=== PATIENT | female | born 1940 | race Caucasian/White ===

== ENCOUNTER → 2020-09-11 12:25 | Outpatient (CLI) | payer OTHER, SELFPAY ==
--- NOTE | ~2020-09-11 | CT_ITS ---
EXAMINATION: CT thoracic spine wo con, CT lumbar spine wo con EXAM DATE: 09/11/2020 12:52 INDICATION: Mid back pain, kyphosis of thoracolumbar region. TECHNIQUE: Spiral CT of the lumbar spine was performed without contrast. Axial, coronal and sagitta l images lumbar spine were reviewed. Axial, coronal and sagittal images of the thoracic spine without contrast were reviewed. The dose-length product (DLP) for this examination was 697.17 (accession [id number]), 930.78 (accession [id number]) mGy-cm. The exposure was tailored according to elisa ent size (auto mA exposure control), and iterative reconstruction (ASIR) was used as additional dose reduction technique. Correlation is made to CT lumbar spine 11/16/2016. FINDINGS: There are intact thoracolumbar Tatum rods from T11 through the sacrum and iliac bones. Posterior bone graft material lower lumbar laminectomy defects. Mild thoracolumbar levoscoliosis. THORACIC SPINE: Chronic T11 anterior wedging, compression fracture, with moderate to severe loss of i ts height anteriorly causing kyphosis. Pedicular screws in this level are intact. Posterior vertebral body height is maintained, but there is 3 mm anterolisthesis of T10 on T11, with severe facet arthro annetta and mild central canal stenosis. Moderate to severe disc disease T9-T10 and T10-11. Mild chroni c central compression superior endplate of T4. Otherwise relatively mild thoracic spondylosis. There are no acute fractures identified. Paraspinal soft tissue is unremarkable. LUMBAR SPINE: There are limitations from the lumbar fusion hardware. No loosening surrounding the ped icular screws. There is mild thoracolumbar levoscoliosis. Lumbar vertebral body heights are maintaine d. There is interbody device at L5-S1 and L4-5. There is probably grade 1 anterolisthesis L5 on S1. S acroiliac joints are intact. There are no acute fractures identified. Incidental sigmoid diverticulos is. Anterior abdominal wall mesh. Cholecystectomy clips. Level by level evaluation: T11-12: Disc does not extend beyond the endplate margin. Facet arthropathy: Moderate. Neural foraminal stenosis: Mild right. Central canal stenosis: No stenosis. T12-L1: Disc does not extend beyond the endplate margin. Facet arthropathy: Fused. Neural foraminal stenosis: No stenosis. Central canal stenosis: No stenosis. L1-L2: There is a mild diffuse disc bulge. Facet arthropathy: Moderate but fused. Neural foraminal stenosis: Mild right. Central canal stenosis: No stenosis. L2-L3: There is a mild diffuse disc bulge. Facet arthropathy: Moderate but fused. Neural foraminal stenosis: Mild to moderate right, mild left. Central canal stenosis: Mild. L3-L4: There is a mild diffuse disc bulge. Facet arthropathy: Moderate but fused. Neural foraminal stenosis: Mild to moderate right, mild left. Central canal stenosis: Mild. L4-L5: This level is fused. Facet arthropathy: Moderate but fused. Neural foraminal stenosis: Mild right. Central canal stenosis: No stenosis. L5-S1: This level is fused. Facet arthropathy: Poorly visualized. Neural foraminal stenosis: Mild to moderate left, mild right. Central canal stenosis: No stenosis. Compared to previous examination, the Tatum rods, fusion is new. There is mild improvement in pa tients levoscoliosis. IMPRESSION: 1. Intact Tatum rods T11 through the pelvis. 2. Chronic appearing moderate to severe anterior wedging of T11, causing kyphosis. 3. Mild lumbar levoscoliosis. 4. Spondylosis as detailed above. Reviewed, dictated and finalized at location A.
== END ==
PROVIDERS: PCP Family Medicine Adolescent Medicine; Visit Provider Nurse Practitioner Acute Care
DX: M40.205 Unspecified kyphosis, thoracolumbar region (principal); M47.815 Spondylosis without myelopathy or radiculopathy, thoracolumbar region; M48.05 Spinal stenosis, thoracolumbar region; M47.817 Spondylosis without myelopathy or radiculopathy, lumbosacral region; M48.07 Spinal stenosis, lumbosacral region
CPT/HCPCS: 72128; 72131

== ENCOUNTER → 2022-10-20 12:58 | Outpatient (CLI) | payer OTHER, SELFPAY ==
--- NOTE | ~2022-10-20 | CT_ITS ---
Noncontrast CT scan of the thoracolumbar spine CLINICAL HISTORY: Pain TECHNIQUE: Axial noncontrast imaging of the thoracolumbar spine was performed. Sagittal and coronal r eformatted images were constructed. Dose reduction technique was used on this scan by utilizing autom ated exposure control and iterative reconstruction technique. The dose-length product (DLP) was 539.1 3 mGy-cm. COMPARISON: 09/11/2020 FINDINGS: There is stable posterior fixation hardware extending from T11 through the sacrum/pelvis, b ilateral rods and transpedicular screws. There are interbody disc fusion devices at the L4-L5 and L5- S1 disc spaces. There is stable severe compression deformity of T11 with acute kyphosis related to th is deformity. There is stable severe degenerative disc narrowing/change at T9-T10 and T10-T11. Remaining thoracic s pine intervertebral disc spaces are well preserved. No definite canal stenosis or cord compression th oracic spine, despite mild retropulsion of the T11 vertebral body. There is extensive streak artifact in the thoracic spine for hardware. No definite canal stenosis halle dent. Mild degenerative spondylitic changes appears similar to prior exam. There is probable mild saba ateral neural foraminal narrowing at L3-L4. There is probable mild right neural foraminal narrowing a t L4-L5. There is probable moderate to possibly severe bilateral neural foraminal narrowing at L5-S1. There is extensive fusion of the lumbar facet joints. Impression: Overall, there is probable minimal if any significant change as compared to prior exam of the thoraco lumbar spine. Stable T11 compression fracture with associated kyphosis. Stable posterior fusion hardware extending from T11 through the sacrum/pelvis. Mild degenerative spondylosis overall, as detailed above, similar to prior exam. Reviewed, dictated and finalized at [facility]. Impression: Overall, there is probable minimal if any significant change as compared to saloni or exam of the thoracolumbar spine. Stable T11 compression fracture with associated kyphosis. Stable posterior fusion hardware extending from T11 through the sacrum/pelvis. Mild degenerative spondylosis overall, as detailed above, similar to prior exam .
== END ==
PROVIDERS: PCP Family Medicine Adolescent Medicine; Visit Provider Nurse Practitioner Family
DX: M54.59 Other low back pain (principal); M54.6 Pain in thoracic spine; M48.54XA Collapsed vertebra, not elsewhere classified, thoracic region, initial encounter for fracture; M40.204 Unspecified kyphosis, thoracic region; M47.814 Spondylosis without myelopathy or radiculopathy, thoracic region
CPT/HCPCS: 72128; 72131

== ENCOUNTER 2023-07-25 13:53 | Observation (INO) | payer OTHER, SELFPAY ==
[2023-07-25] VITALS (9 sets, daily range): BP systolic 116–154; BP diastolic 57–75; PULSE 82–91; RESP 16–20; TEMP 36.5–36.7; O2SAT 96–100; BMI 26.9
--- NOTE | ~2023-07-25 | MR_ITS ---
EXAMINATION: MR brain/brain stem wo/w con DATE: 07/26/2023 11:21 INDICATION: Syncope. TECHNIQUE: Magnetic resonance imaging (MRI) of the brain and brainstem was performed without and with 14 mL MultiHance intravenous contrast. COMPARISON: Head CT 07/25/2023 FINDINGS: There is an empty sella. There are scattered areas of nonspecific increased T2-weighted sig nal intensity in the cerebral white matter, which is within normal limits for the patient's age. Ther e is no intracranial hemorrhage, acute infarction, or abnormal intracranial mass lesion. The ventricl es are normal in size. There are likely changes of ocular lens replacement surgeries. There is mild m ucosal thickening in the paranasal sinuses. The mastoid air cells are normal. IMPRESSION: 1. Empty sella. Reviewed, dictated and finalized at location A. IMPRESSION: 1. Empty sella.
--- NOTE | ~2023-07-25 | CT_ITS ---
EXAMINATION: CT brain wo con DATE: 07/25/2023 15:12 INDICATION: Altered mental status. Seizure. TECHNIQUE: Computed tomography (CT) of the head was performed without intravenous contrast. The mA wa s adjusted according to patient size. Iterative reconstruction technique was employed. The dose-lengt h product was 605.33 mGy-cm. COMPARISON: Head CT 05/30/2016 FINDINGS: There are scattered areas of low attenuation in the cerebral white matter, which is within normal limits for the patient's age. There is no intracranial hemorrhage, acute infarction, or abnorm al intracranial mass lesion. The ventricles are normal in size. There are likely changes of ocular le ns replacement surgeries. There is mild mucosal thickening in the paranasal sinuses. The mastoid air cells are normal. IMPRESSION: 1. Normal aging brain. Reviewed, dictated and finalized at location E. IMPRESSION: 1. Normal aging brain.
--- NOTE | ~2023-07-25 | XR_ITS ---
EXAMINATION: XR chest 2V DATE: 07/25/2023 17:21 INDICATION: Unresponsive episode TECHNIQUE: frontal and lateral views of the chest were obtained. COMPARISON: None FINDINGS: Mild opacities at the left lung base. No pulmonary edema, pleural effusion or pneumothorax. The cardi omediastinal silhouette is normal. Focal kyphosis associated with a chronic T11 compression fracture. There is posterior spinal fusion with bilateral vertical tj and pedicle screw fixation beginning at T11 and extending into the lumbar spine and beyond the inferior margin of the [id number]. IMPRESSION: 1. Mild opacities at the left lung base which could represent atelectasis or pneumonia. Reviewed, dictated and finalized at location A. IMPRESSION: 1. Mild opacities at the left lung base which could represent atelectasis or pn eumonia.
--- NOTE | ~2023-07-25 | US_ITS ---
Procedure: Duplex Doppler examination of the bilateral carotids. Indication: Syncope Technique: Real time, color-flow and pulse wave Doppler examination of the bilateral carotids was performed. Findings: Brito scale ultrasonography of the right neck demonstrated no significant plaque. There was demonstrat ion of normal color-flow and Doppler waveforms within the right common, internal and external carotid arteries. The peak systolic velocities in the right common, internal and external carotid arteries w ere demonstrated to be 92 cm/sec, 77 cm/sec and 57 cm/sec respectively. The right ICA/CCA ratio was 0 .8.The proximal right internal carotid artery demonstrates 0% stenosis relative to the normal distal artery lumen diameter. Brito scale sonography of the left neck demonstrated no significant plaque. There was demonstration of normal color-flow and wave forms within the left common, internal and external carotid arteries. The peak systolic velocities in the left common, internal and external carotid arteries were demonstrate d to be 94cm/sec, 105 cm/sec and 61 cm/sec respectively. The left ICA/CCA ratio was 1.1. The proximal left internal carotid artery demonstrates 0% stenosis relative to the normal distal artery lumen juany meter. There was antegrade flow demonstrated in the bilateral vertebral arteries. Impression: No hemodynamically significant stenosis of the bilateral internal carotid arteries. Antegrade flow in the bilateral vertebral arteries. Note: The methodology used is an indirect measurement validated against a direct method (such as the NASCET criteria) that compares diameters at the stenosis to the distal ICA. Reviewed, dictated and finalized at location . Impression: No hemodynamically significant stenosis of the bilateral internal carotid arter ies. Antegrade flow in the bilateral vertebral arteries. Note: The methodology used is an indirect measurement validated against a direct meth od (such as the NASCET criteria) that compares diameters at the stenosis to the distal ICA.
--- NOTE | 2023-07-25 13:58 | ECG_ITS ---
Measurements Intervals [place] Rate: 88 P: 42 NM: 162 QRS: -49 QRSD: 141 T: 3 QT: 399 QTc: 483 Interpretive Statements SINUS RHYTHM LEFT AXIS DEVIATION RIGHT BUNDLE BRANCH BLOCK CONSIDER INFERIOR INFARCT, AGE INDETERMINATE ABNORMAL ECG NO PREVIOUS ECG AVAILABLE FOR COMPARISON Electronically Signed On 07-25-2023 19:52:04 CDT by Reji Mathias D.O.
[2023-07-25 14:18] LABS: Appearance Urine Clear (Clear); Bilirubin Urine Negative (Negative); Blood Urine Negative (Negative); Color Urine Yellow (Yellow); Glucose Urine UA Negative (Negative); Ketones Urine Trace mg/dL (Negative); Leukocyte Esterase Ur Negative LEU/UL (Negative); Nitrate Urine Negative (Negative); Protein Urine Negative (Negative); Specific Grav Ur 1.021 (1.001-1.035)
--- NOTE | 2023-07-25 14:18 | ED.SYNCOPE ---
HPI - Syncope General Chief Complaint: Seizure Stated Complaint: ?AMS?seizure Time Seen by Provider: 07/25/23 14:07 Source: patient and family Mode of arrival: EMS Limitations: other (patient does not remember incident) History of Present Illness HPI narrative: This is a 83 year old female that presents to the ER after a syncopal episode today. Reports she remembers eating at the table at her daughters house, then next thing she knows she is in the ambulance. Family reports she started to feel nauseous and vomited, she has been having trouble with dizziness recently. She stared off and then slumped in her chair. She was incontinent of urine. She does report history of syncopal episodes in the past. Denies any symptoms currently. Denies vision changes, chest pain, shortness of breath, palpitations, focal numbness or weakness. Related Data Home Medications Medication Instructions Recorded Confirmed naproxen sodium 220 mg tablet 220 mg PO BID PRN 11/20/20 01/14/23 (Aleve) Allergies Allergy/AdvReac Type Severity Reaction Status Date / Time celecoxib Allergy Severe GI BLEED Verified 07/15/23 07:50 donepezil AdvReac Intermediate diarrhea Verified 07/15/23 07:50 lisinopril AdvReac Intermediate cough Verified 07/15/23 07:50 Draper Nut Allergy Unknown mouth Uncoded 07/15/23 07:50 swells memantine AdvReac Intermediate Dizziness Uncoded 07/15/23 07:50 Review of Systems Review of Systems: CONSTITUTIONAL: Denies fever EYES: Denies visual changes CARDIOVASCULAR: Denies chest pain, palpitations RESPIRATORY: Denies dyspnea. GASTROINTESTINAL: Denies vomiting NEUROLOGIC: Denies numbness, or weakness. All systems reviewed & are unremarkable except as noted in HPI and below [facility] Past Medical History Medical History (Updated 07/25/23 @ 17:13 by Mattie Duarte PA-C) Gastro-esophageal reflux disease without esophagitis Hypertensive chronic kidney disease with stage 1 through stage 4 chronic kidney disease, or unspecified chronic kidney disease Hypothyroidism, unspecified (12/2021) Mixed hyperlipidemia Surgical History Surgical History History of ankle surgery 2018 right History of arthroscopy of left knee History of cholecystectomy 2010 History of hammer toe correction History of hemorrhoidectomy History of hysterectomy with bilateral oophorectomy History of lumbar surgery 2018 History of ventral hernia repair Family History Family History Father Leukemia Mother Hypertension Brain aneurysm Daughter Breast cancer Other Family history of arthritis Social History Social History Smoking status: Never smoker Second hand tobacco smoke exposure: No Alcohol intake: never Substance use: never Substance use type: does not use Lack of Transportation: No Lack of Food: Never True Current Housing: I Have Housing Concerned About Future Housing: No Difficulty Paying Gas/Electric Bills: No Difficulty Paying for Meds: No Currently Unemployed: No Education: High School Diploma/GED Difficulty w/ Childcare or Family Care: No Living arrangements: with family Occupation/Education: retired Gender identity (if verbalized by the patient): Female Sexual Orientation (if Verbalized by the Patient): Straight or Heterosexual Spiritual care concerns: No Agree to blood products: Yes Exam Narrative: GENERAL: Elderly, well-nourished, and in no acute distress. HEAD: Normocephalic, atraumatic. EYES: PERRLA and EOMI. ENT: Nares clear, no rhinorrhea or epistaxis. Mucous membranes moist. Oropharynx without tonsillar hypertrophy exudate or other lesions. Bilateral cerumen impaction NECK: Supple. No adenopathy or masses. No midline spinal tenderness CHEST: Clear to auscultation. No respiratory distress. No wheezes rales
[2023-07-25 14:23] LABS: Basophils Absolute Auto 0.1 K/mm3 (0.0-0.1); Eosinophils Absolute Auto 0.3 K/mm3 (0-0.3); Eosinophils Percent Auto 4.4 % (0-4.4); Hematocrit 33.1 % (37.0-47.0); Hemoglobin 10.1 g/dL (12.0-15.0); Immature Granulocyte Absolute 0.03 K/mm3 (0.00-0.031); Immature Granulocyte Percent A 0.4 % (0-0.5); Lymphocytes Percent Auto 25.4 % (18.3-44.2); Mean Corpuscular HGB Conc 30.5 g/dl (32-36); Mean Corpuscular Hemoglobin 28.2 pg (26-34); Mean Corpuscular Volume 92.5 fl (80-100); Mean Platelet Volume 11.3 fl (7.4-10.4); Monocytes Absolute Auto 0.7 K/mm3 (0.1-0.6); Neutrophils Absolute Auto 4.2 K/mm3 (1.3-6.7); Neutrophils Percent Auto 58.8 % (45.5-73.1); Platelet Count Result 295 k/mm3 (150-375); Red Blood Count 3.58 M/mm3 (4.2-5.4); Red Cell Distribution Width 12.6 % (11.5-14.5); White Blood Count 7.1 K/mm3 (4.5-10.0)
[2023-07-25 14:28] LABS: Prothrombin Time 13.9 Seconds (11.1-14.7)
[2023-07-25 14:29] LABS: Partial Thromboplastin Time 28.5 Seconds (22.3-36.8)
[2023-07-25 14:33] LABS: Alanine Aminotransferase 31 U/L (6-35); Albumin Level 3.4 g/dL (3.5-5.1); Alkaline Phosphatase 74 U/L (38-126); Anion Gap 8 mmol/L (4-12); Aspartate Amino Transferase 56 U/L (14-36); Bilirubin,Total 0.4 mg/dL (0.2-1.3); Blood Urea Nitrogen 24 mg/dL (7-17); Calcium 8.5 mg/dL (8.4-10.2); Carbon Dioxide 23 mmol/L (22-30); Chloride 106 mmol/L (98-107); Estimated CRCL calculation 33 ml/min; Estimated Glomerular Filt Rate 53; Glucose 181 mg/dL (65-110); Potassium 2.9 mmol/L (3.4-5.0); Sodium 137 mmol/L (137-145)
[2023-07-25 14:35] LABS: Add Urine Microscopic? NO
[2023-07-25 14:51] LABS: Troponin I < 0.012 ng/mL (0.000-0.034)
[2023-07-25] MEDS: POTASSIUM CHLORIDE 20 MEQ ER TABLET 40 MEQ PO (15:53)
[2023-07-25] MEDS: MAGNESIUM SULF 2 GM/WATER 50ML 2 GM/50 ML BAG IVPB (15:54)
--- NOTE | 2023-07-25 18:25 | ADMGEN ---
This patient, Leslie Flores, was admitted to Medical Room 346-01. Patient/family oriented to hospital policies and general routines including ID bracelet, bed and alarms, visiting hours, pain management, procedures, bathroom and other care routines, personal items, smoking policy, room service/diet, and visiting hours. Information on how to activate the Rapid Response Team has been discussed. Patient/Family are encouraged to report perceived risks to care and to ask questions if they do not understand what they are told or what they should do.
--- NOTE | 2023-07-25 18:40 | PM.IMHP ---
H&P: HPI History of Present Illness Date/Time: 07/25/23 18:05 Chief Complaint: Unresponsive episode. Narrative: This is a pleasant 83-year-old female with hypertension, hyperlipidemia, hypothyroidism, chronic kidney disease, mild memory impairment, and gastroesophageal reflux disease who presented to the emergency department via EMS from home for evaluation after an unresponsive episode. The patient provides the following history and her family members provide additional information, with the patient's permission. She was in her usual state of health when she got up this morning, went to christian, and then went to her daughter's house to for [employer] lunch. She ate a good meal and just before dessert was to be served she began to complain of dizziness and nausea. She then became unresponsive and slumped forward into the chair. Family members report that her eyes were open the entire time but she was not answering questions or following commands. Her jaw appeared to be clenched and she was breathing heavily. There were no reports of tremors. She was incontinent of a small amount of urine. After a couple of minutes she came to and had several episodes of emesis. She does not recall feelings of chest pain, pleuritic pain, palpitations, sensations of racing heart, or shortness of breath. In the ED: She was afebrile on arrival with stable blood pressures. Labs were significant for a WBC count of 7.1, hemoglobin 10.1, potassium 2.9, BUN 24, glucose 181, magnesium 1.0, troponin less than 0.012. Urine was positive for trace ketones. Head CT showed normal aging brain. EKG showed sinus rhythm with left axis deviation, right bundle-branch block, and possible age-indeterminate inferior infarct. She is being admitted in this setting for further workup. Review of Systems Review of Systems: Twelve systems were reviewed and are negative except for as per HPI. [facility] Past Medical History Medical History (Updated 07/25/23 @ 21:55 by Barbara Naqvi PA-C) Gastro-esophageal reflux disease without esophagitis Hypertensive chronic kidney disease with stage 1 through stage 4 chronic kidney disease, or unspecified chronic kidney disease Hypothyroidism, unspecified (12/2021) Mixed hyperlipidemia Surgical History Surgical History History of ankle surgery 2018 right History of arthroscopy of left knee History of cholecystectomy 2010 History of hammer toe correction History of hemorrhoidectomy History of hysterectomy with bilateral oophorectomy History of lumbar surgery 2018 History of ventral hernia repair Family History Family History Father Leukemia Mother Hypertension Brain aneurysm Daughter Breast cancer Other Family history of arthritis Social History Social History (Updated 07/25/23 @ 21:53 by Barbara Naqvi PA-C) Social History: Surrogate medical decision maker: Gene Reyeseliezer, spouse. Code status: Full code. Smoking status: Never smoker Second hand tobacco smoke exposure: No Alcohol intake: never Substance use: never Substance use type: does not use Do You Feel Safe in your Home?: Yes Lack of Transportation: No Lack of Food: Never True Current Housing: I Have Housing Concerned About Future Housing: No Difficulty Paying Gas/Electric Bills: No Difficulty Paying for Meds: No Currently Unemployed: No Education: High School Diploma/GED Difficulty w/ Childcare or Family Care: No Living arrangements: with family Occupation/Education: retired Spiritual care concerns: No Agree to blood products: Yes Meds Home Medications and Allergies Home Medications Medication Instructions Recorded Confirmed Type naproxen sodium 220 mg tablet 220 mg PO BID PRN Pain 11/20/20 07/25/23 History (Aleve) omeprazole 40 mg capsule,delayed 40 mg PO DAILY #90 caps 11/23/22 07/25/23 Rx r
[2023-07-25 22:56] LABS: Magnesium 1.6 mg/dL (1.6-2.3); Potassium 3.6 mmol/L (3.4-5.0)
[2023-07-25 23:17] LABS: Hemoglobin A1C 5.5 % (<5.7)
[2023-07-26] VITALS (12 sets, daily range): BP systolic 141–167; BP diastolic 78–98; PULSE 73–101; RESP 16–18; TEMP 36.5–36.8; O2SAT 97–99
--- NOTE | 2023-07-26 | ECHO_ITS ---
Patient Info Name: Leslie lFores Age: 83 years : 1940 Gender: Female Ht: 64 in Wt: 156 lbs BSA: 1.80 m2 HR: 86 bpm BP: 141 / 81 mmHg Technical Quality: Fair Exam Date: 07/26/2023 3:28 PM Exam Location: Echo Lab Exam Room: [facility] Patient Status: Inpatient Admit Date: 07/25/2023 Staff Ordering Physician: Barbara Naqvi PA-C Blender Laborer: Brandy Avila RDCS Attending Provider: Yoel Kelly MD Referring Physician: Donya AWAN; Exam Type: CA echo doppler color flow Study Info Indications - syncope Complete two-dimensional, color flow and Doppler transthoracic echocardiogram is performed. Summary 1. Complete two-dimensional, color flow and Doppler transthoracic echocardiogram is performed. 2. Left ventricular chamber dimension is normal. 3. Left ventricular systolic function is normal, estimated at 65-70%. 4. The left ventricular diastolic function is grade I diastolic dysfunction. 5. E/e' 14 is mildly elevated. 6. Left atrial chamber dimension is moderately enlarged. 7. Lambdl excrescences seen on aortic vavle leaflets. 8. There is moderate aortic valve sclerosis. 9. The mitral valve has moderately calcified annulus. 10. There is mild mitral valve regurgitation. 11. No pulmonary hypertension, estimated pulmonary arterial systolic pressure is 35 mmHg. Left Ventricle E/e' 14 is mildly elevated. Left ventricular chamber dimension is normal. Left ventricular systolic function is normal, estimated at 65-70%. The left ventricular diastolic function is grade I diastolic dysfunction. Right Ventricle Right ventricular chamber dimension is normal. Right ventricular systolic function is normal. Left Atria Left atrial chamber dimension is moderately enlarged. Right Atria Right atrial chamber dimension is normal. Aortic Valve Lambdl excrescences seen on aortic vavle leaflets. The aortic valve is trileaflet. There is moderate aortic valve sclerosis. There is no aortic valve stenosis. There is no aortic valve regurgitation. Pulmonic Valve There is no pulmonic regurgitation. Mitral Valve The mitral valve has moderately calcified annulus. There is no mitral valve stenosis. There is mild mitral valve regurgitation. Tricuspid Valve There is no tricuspid valve regurgitation. No pulmonary hypertension, estimated pulmonary arterial systolic pressure is 35 mmHg. Pericardium/Pleural There is no pericardial effusion. Inferior Vena Cava Normal inferior vena cava with >50% collapse upon inspiration consistent with normal right atrial pressure, 5 mmHg. Aorta The aortic root size at the sinus of Valsalva is normal. Left Ventricular Outflow Tract Name Value Normal LVOT 2D LVOT Diameter 2.0 cm LVOT Doppler LVOT Peak Gradient 6 mmHg LVOT Mean Gradient 4 mmHg LVOT VTI 26 cm LVOT VTI/AV VTI Ratio 0.8 LVOT Stroke Volume 80 ml LVOT CO 18.3 l/min LVOT CI 10.2 l/min/m2 Pulmonic Valve Name
[2023-07-26 06:19] LABS: Hematocrit 29.6 % (37.0-47.0); Hemoglobin 9.1 g/dL (12.0-15.0); Mean Corpuscular HGB Conc 30.7 g/dl (32-36); Mean Corpuscular Hemoglobin 27.9 pg (26-34); Mean Corpuscular Volume 90.8 fl (80-100); Mean Platelet Volume 11.5 fl (7.4-10.4); Platelet Count Result 263 k/mm3 (150-375); Red Blood Count 3.26 M/mm3 (4.2-5.4); Red Cell Distribution Width 12.6 % (11.5-14.5); White Blood Count 6.2 K/mm3 (4.5-10.0)
[2023-07-26 06:25] LABS: Alanine Aminotransferase 30 U/L (6-35); Albumin Level 2.9 g/dL (3.5-5.1); Alkaline Phosphatase 72 U/L (38-126); Anion Gap 3 mmol/L (4-12); Aspartate Amino Transferase 54 U/L (14-36); Bilirubin,Total 0.3 mg/dL (0.2-1.3); Blood Urea Nitrogen 20 mg/dL (7-17); Calcium 8.3 mg/dL (8.4-10.2); Carbon Dioxide 23 mmol/L (22-30); Chloride 110 mmol/L (98-107); Estimated CRCL calculation 40 ml/min; Estimated Glomerular Filt Rate > 60; Glucose 93 mg/dL (65-110); Magnesium 1.6 mg/dL (1.6-2.3); Potassium 3.5 mmol/L (3.4-5.0); Sodium 136 mmol/L (137-145)
[2023-07-26] MEDS: LOSARTAN POTASSIUM 50 MG TABLET PO (09:07)
[2023-07-26] MEDS: ATORVASTATIN 20 MG TABLET PO (09:08)
[2023-07-26] MEDS: FUROSEMIDE 40 MG TABLET PO (09:08)
[2023-07-26] MEDS: ENOXAPARIN 40 MG/0.4 ML SYRINGE SUB-Q (09:08)
--- NOTE | 2023-07-26 10:41 | WPDNEUROLOGY ---
Neurology EEG Report General Information Date of Study: 07/26/23 TEST Electroencephalogram DIAGNOSIS loss of consciousness CONDITION OF RECORDING bedside CLINICAL HISTORY history of loss of consciousness preceded by dizziness and nausea. EEG DESCRIPTION During wakefulness the background activity consists of posterior dominant alpha rhythm at 9 hertz with an amplitude of 20-40 microvolts which appears more deformed and reactive to eye opening. Anteriorly low amplitude mixed frequency activity was seen. There is a moderate anteroposterior gradient. During drowsiness attenuation of background activity and diffuse theta activity were seen however patient did not progress to stage 2 sleep. Hyperventilation or Photic stimulation were not performed. IMPRESSION This is a normal EEG obtained during awake and drowsy states.
--- NOTE | 2023-07-26 11:33 | WPDNEURCNPN ---
Assessment and Plan Assessment and plan (1) Syncope: Code(s): R55 - Syncope and collapse Status: Acute Assessment and Plan: This is 3rd spell of unresponsiveness occurred to patient's . The concern is the clenching of the jaw and today staring blankly and incontinence for urine making seizures as a possibility. Her EEG was however normal. CT scan of brain was also normal. It does show a fair amount or atrophy. The patient has undergone MRI of the results of which will be followed up. I have reviewed the films and these appeared to within acceptable normal range. Mild white matter changes were noted. No acute infarcts were identified on the diffusion scanning. (2) Altered awareness, transient: Code(s): R40.4 - Transient alteration of awareness Status: Acute Assessment and Plan: please refer to the note above (3) Memory impairment: Code(s): R41.3 - Other amnesia Status: Acute Assessment and Plan: the patient is on done is on Aricept 5 mg a day and seems to do well according to the family. (4) Hypertension: Code(s): I10 - Essential (primary) hypertension Status: Acute Assessment and Plan: Controlled (5) Chronic anemia: Code(s): D64.9 - Anemia, unspecified Status: Acute (6) Chronic kidney disease: Code(s): N18.9 - Chronic kidney disease, unspecified Status: Acute Plan since the patient had 2 spells prior to this the possibility of a cardiac arrhythmia versus seizure disorder with indeed be a consideration. Vasovagal attacks can also sometimes be there as a possibility. I would suggest a prolonged cardiac monitoring for 30 days and if this does not show any abnormality I should be glad to see her in my office pre impaired ache therapy with anticonvulsants may be consider in some cases in view of the history of clenching of the jaw incontinence of urine. Of course none of these things prove that she is definitely having seizures. EEG was normal and that also does not prove or rule out seizure disorder. I have explained this to the patient and her family. Impairing have been may be offered in some cases after repeated spell where a cardiac cause is not found. I would also suggest a carotid Doppler study. She is known to have stage 1 chronic kidney disease and has an angiographic study is deferred. Consult date: 07/26/23 Time Seen: 11:33 Reason for consult: Episode of unresponsiveness HPI: Leslie Flores is a 83 year old female with history of episode of unresponsiveness witnessed by her who was present at the time of the evaluation. Patient did not have any warning. She suddenly he started to be staring blankly and they appeared out of it for a few minutes. she appeared to be clenching her jaw and she also has incontinence of urine. She has had 2 other spells such similar to this in the past. The very last 1 of these occurred 2 years ago. does not remember if there was any outcome from the testing done at the time. The patient has history of chronic pain and has been [facility] and was she was offered possible morphine pump however this did not materialize due to some technical regions. She also history of vertigo for last month and half and has seen a family physician regarding this. She was diagnosed to have benign paroxysmal positional vertigo. Patient denies any other pertinent symptoms. She does take Aleve for pain. I noted that she has history of stage 1 chronic kidney disease and alerted her of the potential side effect from naproxen in patients kidney disease. Review of Systems Review of Systems: All systems reviewed & are unremarkable except as noted in HPI and below Constitutional: Constitutional: Reports no additional constitutional complaints Cardiovascular: Cardiovascular: Reports no additional cardiovascular complaints Respiratory: Respiratory: Reports no
[2023-07-26 12:29] LABS: T4 Thyroxine 9.17 ug/dL (5.53-11.0)
[2023-07-26 12:52] LABS: Vitamin D 25 Hydroxy 22.3 ng/mL
[2023-07-26 13:18] LABS: Folic Acid 4.2 ng/mL (2.76->20)
--- NOTE | 2023-07-26 16:26 | PM.IMPN ---
Progress Note: A&P Assessment and Plan (1) Syncope: Code(s): R55 - Syncope and collapse Status: Acute Assessment and Plan: ECHO Carotid dopplers Venous dopplers ordered MRI ordered CXR ordered (2) Hypokalemia: Code(s): E87.6 - Hypokalemia Status: Resolved (3) Hypomagnesemia: Code(s): E83.42 - Hypomagnesemia Status: Resolved (4) Hyperglycemia: Code(s): R73.9 - Hyperglycemia, unspecified Status: Acute Assessment and Plan: A1c 5.5 continue to monitor (5) Memory impairment: Code(s): R41.3 - Other amnesia Status: Acute Assessment and Plan: Neurology consulted EEG normal MRI ordered - showed empty sella, awaiting further evaluation PT/OT ordered (6) Chronic kidney disease: Code(s): N18.9 - Chronic kidney disease, unspecified Status: Chronic Assessment and Plan: UA negative Labs WNL, continue to trend and monitor (7) Chronic anemia: Code(s): D64.9 - Anemia, unspecified Status: Chronic Assessment and Plan: 9.1/29.6 today continue to monitor will order iron studies (8) Hypertension: Code(s): I10 - Essential (primary) hypertension Status: Chronic Assessment and Plan: continue home meds Subjective Date/time seen: 07/26/23 16:26 Interval history: Patient sitting up in bed on exam, in no acute distress. Family is at bedside. She denies any SOB, chest pain. Neurology consulted and full work up ordered, with pending results. PT/OT ordered for d/c planning. Review of Systems Review of Systems: All systems reviewed & are unremarkable except as noted in HPI and below Exam Narrative: General: Well-developed, nontoxic-appearing elderly female sitting up in bed in no distress. HEENT: Normocephalic, atraumatic. PERRLA, EOMI. Neck: Supple. Respiratory: Lungs are clear to auscultation bilaterally. Cardiovascular: RRR with S1-S2. Gastrointestinal: Abdomen is soft and nontender with positive bowel sounds. Skin: Warm and dry. Extremities: No cyanosis, clubbing, or edema. Radial and pedal pulses intact. Neurological: A&Ox3. Cranial nerves 2-12 are grossly intact. No gross focal deficits to casual conversation. Psychiatric: Pleasant and cooperative with appropriate mood and affect. Objective Data Vital Signs Vital Signs: Vital Signs - 24 hr 07/25/23 16:46 07/25/23 17:16 07/25/23 20:45 Temperature 97.9 F 97.7 F Pulse Rate 85 90 86 Respiratory Rate 19 18 18 Blood Pressure 130/65 116/57 L 154/75 H Pulse Oximetry 100 99 98 Oxygen Delivery 07/25/23 20:00 07/26/23 00:00 07/26/23 04:00 Temperature Pulse Rate 82 73 73 Respiratory Rate Blood Pressure Pulse Oximetry Oxygen Delivery 07/26/23 04:59 07/26/23 08:00 07/26/23 08:00 Temperature 98.1 F Pulse Rate 86 86 Respiratory Rate 16 Blood Pressure 141/81 H Pulse Oximetry 97 97 Oxygen Delivery Room Air 07/26/23 10:48 07/26/23 12:00 07/26/23 14:00 Temperature 98.3 F Pulse Rate 88 98 Respiratory Rate 16 Blood Pressure 167/91 H Pulse Oximetry 99 Oxygen Delivery Room Air 07/26/23 14:00 07/26/23 14:00 07/26/23 15:28 Temperature 98.3 F Pulse Rate 98 Respiratory Rate 16 Blood Pressure 167/91 H 148/98 H 148/98 H Pulse Oximetry 99 Oxygen Delivery Intake/Output Intake/Output: Intake & Output 07/23/23 07/24/23 07/25/23 07/26/23 23:59 23:59 23:59 23:59 Intake Total 50 702 Output Total 20 Balance 30 702 Meds/Results Medications: Active Medications Generic Name Dose Route Start Last Admin Trade Name Leandroq PRN Reason Stop Dose Admin Acetaminophen 650 mg 07/25/23 21:59 Acetaminophen 325 Mg Tablet PO Q6H PRN Mild Pain (1-3) or Fever Atorvastatin Calcium 20 mg 07/26/23 09:00 07/26/23 09:08 Atorvastatin 20 Mg Tablet PO 20 mg DAILY UMU Administration Dextrose 12.5
[2023-07-26] MEDS: DONEPEZIL HCL 5 MG TABLET PO (20:29)
[2023-07-27] VITALS: PULSE 78
[2023-07-27 04:00] VITALS: PULSE 68
[2023-07-27 05:20] VITALS: BP 157/79; PULSE 88; RESP 18; TEMP 36.2; O2SAT 98
[2023-07-27 06:02] LABS: Basophils Absolute Auto 0.1 K/mm3 (0.0-0.1); Basophils Percent Auto 0.9 % (0.2-1.2); Eosinophils Absolute Auto 0.4 K/mm3 (0-0.3); Eosinophils Percent Auto 6.4 % (0-4.4); Hematocrit 31.8 % (37.0-47.0); Hemoglobin 10.1 g/dL (12.0-15.0); Immature Granulocyte Absolute 0.01 K/mm3 (0.00-0.031); Immature Granulocyte Percent A 0.1 % (0-0.5); Lymphocytes Percent Auto 26.7 % (18.3-44.2); Mean Corpuscular HGB Conc 31.8 g/dl (32-36); Mean Corpuscular Hemoglobin 28.6 pg (26-34); Mean Corpuscular Volume 90.1 fl (80-100); Mean Platelet Volume 11.2 fl (7.4-10.4); Monocytes Absolute Auto 0.7 K/mm3 (0.1-0.6); Monocytes Percent Auto 10.1 % (2.6-8.5); Neutrophils Absolute Auto 3.8 K/mm3 (1.3-6.7); Neutrophils Percent Auto 55.8 % (45.5-73.1); Platelet Count Result 269 k/mm3 (150-375); Red Blood Count 3.53 M/mm3 (4.2-5.4); Red Cell Distribution Width 12.5 % (11.5-14.5); White Blood Count 6.7 K/mm3 (4.5-10.0)
[2023-07-27 06:16] LABS: Anion Gap 4 mmol/L (4-12); Blood Urea Nitrogen 15 mg/dL (7-17); Calcium 8.9 mg/dL (8.4-10.2); Carbon Dioxide 27 mmol/L (22-30); Chloride 105 mmol/L (98-107); Estimated CRCL calculation 45 ml/min; Estimated Glomerular Filt Rate > 60; Glucose 93 mg/dL (65-110); Potassium 3.4 mmol/L (3.4-5.0); Sodium 136 mmol/L (137-145)
[2023-07-27 08:13] LABS: Iron 27 ug/dL (37-170)
[2023-07-27 08:22] LABS: Percent Iron Saturation 8 % (20-50)
[2023-07-27] MEDS: ATORVASTATIN 20 MG TABLET PO (09:12)
[2023-07-27] MEDS: LOSARTAN POTASSIUM 50 MG TABLET PO (09:12)
[2023-07-27] MEDS: ENOXAPARIN 40 MG/0.4 ML SYRINGE SUB-Q (09:12)
[2023-07-27] MEDS: FUROSEMIDE 40 MG TABLET PO (09:12)
--- NOTE | 2023-07-27 14:39 | PM.DS ---
DS: Admitting Diagnosis Discharge Date 07/27/23 Admitting Diagnosis unresponsive episode DS: Discharge Diagnosis Discharge Diagnosis (1) Syncope: Code(s): R55 - Syncope and collapse Status: Acute Assessment and Plan: ECHO unrevealing Carotid dopplers showed 0% stenosis MRI negative for acute process, showed empty sella. Discussed with neuro and if patient is not experiencing symptoms such as headaches, it does not warrant further evaluation at this time (2) Hypokalemia: Code(s): E87.6 - Hypokalemia Status: Resolved (3) Hypomagnesemia: Code(s): E83.42 - Hypomagnesemia Status: Resolved (4) Hyperglycemia: Code(s): R73.9 - Hyperglycemia, unspecified Status: Acute Assessment and Plan: A1c 5.5 (5) Memory impairment: Code(s): R41.3 - Other amnesia Status: Acute Assessment and Plan: Neurology consulted EEG normal MRI unrevealing (6) Chronic kidney disease: Code(s): N18.9 - Chronic kidney disease, unspecified Status: Chronic Assessment and Plan: UA negative Labs WNL (7) Chronic anemia: Code(s): D64.9 - Anemia, unspecified Status: Chronic Assessment and Plan: today continue to monitor iron low, PO iron at d/c (8) Hypertension: Code(s): I10 - Essential (primary) hypertension Status: Chronic Assessment and Plan: continue home meds DS: Summary Hospital Course Hospital Course: Patient is an 83-year-old female with PMH of hypertension, hyperlipidemia, hypothyroidism, chronic kidney disease, mild memory impairment, and GERD admitted for evaluation after an unresponsive episode. After a couple of minutes she came to and had several episodes of emesis. She does not recall feelings of chest pain, pleuritic pain, palpitations, sensations of racing heart, or shortness of breath. In the ED: She was afebrile on arrival with stable blood pressures. Labs were significant for a WBC count of 7.1, hemoglobin 10.1, potassium 2.9, BUN 24, glucose 181, magnesium 1.0, troponin less than 0.012. Urine was positive for trace ketones. Head CT showed normal aging brain. EKG showed sinus rhythm with left axis deviation, right bundle-branch block, and possible age-indeterminate inferior infarct. Neurology was consulted and ordered MRI which was unrevealing. Carotid dopplers showed 0% stenosis. ECHO was unremarkable. She has chronic anemia, iron studies showed iron deficiency. PT/OT was ordered for evaluation and patient is stable for d/c home today with . Patient may benefit from further EEG study outpatient if episode recurs. Neurology cleared her for d/c today. Status at Discharge Functional status at discharge: independent ambulation Overall status at discharge: patient is back to baseline Time Spent with Patient Time attestation: Total time spent providing and/or coordinating discharge services: Exam Narrative: General: Well-developed, nontoxic-appearing elderly female sitting up in bed in no distress. HEENT: Normocephalic, atraumatic. PERRLA, EOMI. Neck: Supple. Respiratory: Lungs are clear to auscultation bilaterally. Cardiovascular: RRR with S1-S2. Gastrointestinal: Abdomen is soft and nontender with positive bowel sounds. Skin: Warm and dry. Extremities: No cyanosis, clubbing, or edema. Radial and pedal pulses intact. Neurological: A&Ox3. Cranial nerves 2-12 are grossly intact. No gross focal deficits to casual conversation. Psychiatric: Pleasant and cooperative with appropriate mood and affect. DS: Data Data Completed and Pending Labs on day of discharge: Labs from last 24 hours 07/27/23 05:42 WBC 6.7 RBC 3.53 L Hgb 10.1 L Hct 31.8 L MCV 90.1 MCH 28.6 MCHC 31.8 L RDW 12.5 Plt Count 269 MPV 11.2 H Immature Gran % (Auto) 0.1 Neut % (Auto) 55.8 Lymph % (Auto) 26.7 [place] % (Auto) 10.1 H Eos % (Auto) 6.4 H Baso
[2023-07-30 13:32] LABS: T3 Free 2.5 pg/mL
== END 2023-07-27 14:24 | disposition home or self-care (01) ==
LOC: ANHED 17:12 → ANH3MED 18:04
PROVIDERS: Nurse Practitioner; Physician Assistant; Psychiatry & Neurology Neurology; Admitting Provider Hospitalist; Emergency Provider Physician Assistant; PCP Family Medicine Adolescent Medicine; Visit Provider Hospitalist
DX: R55 Syncope and collapse (principal); R41.3 Other amnesia; I12.9 Hypertensive chronic kidney disease with stage 1 through stage 4 chronic kidney disease, or unspecified chronic kidney disease; N18.9 Chronic kidney disease, unspecified; E87.6 Hypokalemia; E83.42 Hypomagnesemia; R73.9 Hyperglycemia, unspecified; D64.9 Anemia, unspecified; I08.0 Rheumatic disorders of both mitral and aortic valves; K21.9 Gastro-esophageal reflux disease without esophagitis; E03.9 Hypothyroidism, unspecified; R94.31 Abnormal electrocardiogram [ECG] [EKG]; E78.2 Mixed hyperlipidemia; Z79.1 Long term (current) use of non-steroidal anti-inflammatories (NSAID); Z79.899 Other long term (current) drug therapy
CPT/HCPCS: 36415; 70450; 70553; 71046; 80048; 80053; 81003; 82306; 82607; 82728; 82746; 83036; 83540; 83550; 83735; 84132; 84436; 84443; 84480; 84484; 85025; 85027; 85610; 85730; 93005; 93306; 93880; 95816; 96365; 96366; 96372; 97161; 97165; 99285; A9270; A9577; G0378; J1650; J3475

== ENCOUNTER 2024-08-17 10:20 | Outpatient (CLI) | payer OTHER, SELFPAY ==
--- NOTE | ~2024-08-17 | XR_ITS ---
Left Knee Technique: AP and lateral views were obtained. Clinical History: Pain Findings: No fracture or dislocation is seen. There is medial compartment narrowing, with mild tricom partmental degenerative spurring.. Soft tissues are unremarkable. No joint effusion is seen. Impression: Degenerative change, as above, worst in the medial compartment. Reviewed, dictated and finalized at location . Impression: Degenerative change, as above, worst in the medial compartment.
--- NOTE | ~2024-08-17 | XR_ITS ---
Right Knee Technique: AP and lateral views were obtained. Clinical History: Pain Findings: No fracture or dislocation is seen. There is lateral compartment narrowing with mild tricom partmental osteophyte formation.. Soft tissues are unremarkable. No joint effusion is seen. Impression: Degenerative change, as above, worst in the lateral compartment. Reviewed, dictated and finalized at location . Impression: Degenerative change, as above, worst in the lateral compartment.
== END 2024-08-17 10:21 | disposition home or self-care (01) ==
PROVIDERS: PCP Family Medicine Adolescent Medicine; Visit Provider Nurse Practitioner Family
DX: M17.0 Bilateral primary osteoarthritis of knee (principal)
CPT/HCPCS: 73560

== ENCOUNTER 2025-03-06 00:17 | Day surgery (SDC) | payer OTHER, SELFPAY ==
--- OUTSIDE RECORDS SUMMARY | 2010-03-18 10:00 | XMS_ITS | Continuity of Care Document ---
Author Organization [facility] Address [address] [place] [address] Phone Care Team Providers Care Mold Dresser Name Role Phone Lisy Novak Unavailable Unavailable Procedures Procedure Date Post-op Follow-up Visit Post-op Follow-up Visit Post-op Follow-up Visit Remove Cataract, Insert Lens Eye Exam Established Pt Eye Exam, New Patient Refraction Advance Directives Directive Yes / No Effective Date File Name No Information Encounters Encounter Description Practice Location Reason(s) For Visit Diagnoses Date Provider Providers Copied on Encounter [facility], [address] [place] [address] [address], [place], [place], [id number], tel:[phone] [facility] No Information 0 Scarlet Rangel [address] , [address], [place], [place], [facility], [place]. tel:[phone] [facility], [address] [place] [address] [address], [place], [place], [id number], [place] tel:[phone] [facility] No Information 0 Scarlet Rangel [address] , [address], [place], [place], [facility], . tel:[phone] [facility], [address] [place] [address] [address], [place], [place], [id number], tel:[phone] [facility] No Information Jan- 4-201 0 Funes OD Juan Jose. [address] , [address], [place], [address], [place]. tel:[phone] [facility], [id number] [place] [address] [address], [place], [place], [id number], tel:[phone] [facility] No Information 3-201 0 Novak Lisy. [address] , [address], [place], [place], [facility], [place]. tel:[phone] [facility], [address], [place], [place], [id number], tel:[phone] [facility] No Information Dec-2 4-201 0 Novak Lisy. [address] [facility] , [address], [place], [place], [facility], [place]. tel:[phone] [facility], [address], [place], [place], [id number], tel:[phone] [facility] No Information 7- 0 Novak Lisy. [address] [facility] [address] , [address], [place], [place], [facility], [place]. tel:[phone] Family History Family Member Type Diagnosis Age At Onset No Information Payers Payer name Insurance type Covered constitution party ID Authoriza tion(s) No Information Social History Type Description Quantity Date Captured Comments Sex Female Smoking Status No Information Chief Complaint And Reason For Visit No Information Reason For Referral Reason For Referral No Information History Of Present Illness Encounter Date Complaint History Of Prese nt Illness No Information Functional Status Date Functional Assessmen t No Information Instructions Date Instruction Additional Infor mation No Information Assessments Type Assessment Date No Information Patient Care Teams Name Effective Dates (start - stop) Status Members No Information
--- OUTSIDE RECORDS SUMMARY | 2024-01-09 09:35 | XMS_ITS | Continuity of Care Document ---
Author Organization [facility] Address [address] [facility] [address] [place] [address] Phone Care Team Providers Care Trading Specialist Name Role Phone Juan Antonio PTRonni Unavailable Unavailable Procedures Procedure Date Progress Note Therapeutic Activities Neuromuscular Re-Ed Therapeutic Activities Neuromuscular Re-Ed Therapeutic Activities Neuromuscular Re-Ed Therapeutic Activities Neuromuscular Re-Ed Therapeutic Activities Neuromuscular Re-Ed Therapeutic Activities Neuromuscular Re-Ed Therapeutic Activities Neuromuscular Re-Ed Therapeutic Activities Neuromuscular Re-Ed Therapeutic Activities Neuromuscular Re-Ed Therapeutic Activities Neuromuscular Re-Ed Doc neg elder mal no plan PRES/ABSN URINE INCON ASSESS PT Evaluation Low Complexity Therapeutic Activities Neuromuscular Re-Ed Therapeutic Activities Neuromuscular Re-Ed Therapeutic Activities Neuromuscular Re-Ed Therapeutic Activities Neuromuscular Re-Ed Therapeutic Activities Neuromuscular Re-Ed Therapeutic Exercise Therapeutic Activities Neuromuscular Re-Ed Therapeutic Activities Neuromuscular Re-Ed Therapeutic Exercise Therapeutic Activities Neuromuscular Re-Ed Therapeutic Exercise Therapeutic Activities Neuromuscular Re-Ed Therapeutic Exercise Therapeutic Activities Neuromuscular Re-Ed Therapeutic Exercise Doc neg elder mal no plan PRES/ABSN URINE INCON ASSESS PT Evaluation Moderate Complexity Therapeutic Activities Therapeutic Exercise Therapeutic Activities Neuromuscular Re-Ed Therapeutic Exercise Progress Note Therapeutic Activities Neuromuscular Re-Ed Therapeutic Exercise Therapeutic Activities Neuromuscular Re-Ed Therapeutic Exercise Therapeutic Activities Neuromuscular Re-Ed Therapeutic Exercise Therapeutic Activities Neuromuscular Re-Ed Therapeutic Exercise Therapeutic Activities Neuromuscular Re-Ed Therapeutic Exercise Therapeutic Activities Neuromuscular Re-Ed Therapeutic Exercise Therapeutic Activities Neuromuscular Re-Ed Therapeutic Exercise Therapeutic Activities Neuromuscular Re-Ed Therapeutic Exercise Progress Note Therapeutic Activities Neuromuscular Re-Ed Therapeutic Exercise Therapeutic Activities Neuromuscular Re-Ed Therapeutic Exercise Therapeutic Activities Neuromuscular Re-Ed Therapeutic Exercise Progress Note Therapeutic Activities Neuromuscular Re-Ed Therapeutic Exercise Therapeutic Activities Neuromuscular Re-Ed Therapeutic Exercise Therapeutic Activities Neuromuscular Re-Ed Therapeutic Exercise Therapeutic Activities Neuromuscular Re-Ed Therapeutic Exercise Therapeutic Activities Neuromuscular Re-Ed Therapeutic Exercise Therapeutic Activities Neuromuscular Re-Ed Therapeutic Exercise Therapeutic Activities Neuromuscular Re-Ed Therapeutic Exercise Therapeutic Activities Neuromuscular Re-Ed Therapeutic Exercise Progress Note Therapeutic Activities Neuromuscular Re-Ed Therapeutic Exercise Therapeutic Activities Neuromuscular Re-Ed Therapeutic Exercise Therapeutic Activities Neuromuscular Re-Ed Therapeutic Exercise Therapeutic Activities Neuromuscular Re-Ed Therapeutic Exercise Therapeutic Activities Neuromuscular Re-Ed Therapeutic Exercise Therapeutic Activities Neuromuscular Re-Ed Therapeutic Exercise Doc neg elder mal no plan PRES/ABSN URINE INCON ASSESS PT Evaluation Moderate Complexity Therapeutic Activities Neuromuscular Re-Ed Therapeutic Exercise Advance Directives Directive Yes / No Effective Date File Name No Information Encounters Encounter Description Practice Location Reason(s) For Visit Diagnoses Date Provider Providers Copied on Encounter [facility] [address], [place], [place], [id number], [place] tel:[phone] [facility] No Information Dec- 4 Juan Antonio Ronni. . [facility], [id number], tel:[phone] [facility] No Information August-2 4 Aissatou Flores. [address] [facility], [address], [place], [place], [facility], [place]. tel: [phone] Referring Provider: King Wayne , [address] [place] [address], [address]. tel:[phone] [facility] [address], [id number], [place] tel:[phone] [facility] No Information 4 Juan Antonio Ronni. . Referring Provider: King Wayne , [address] [place] [address], [address]. tel:[phone] [facility] [address], [id number], [place] tel:[phone] [facility] No Information August- 4 Juan Antonio Ronni. . Referring Provider: King Wayne , [address] [place] [address], [address]. tel:[phone] [facility] [address], [id number], tel:[phone] [facility] No Information August-0 4 Juan Antonio Ronni. . Referring Provider: King Wayne , [address] [place] [address], [address]. tel:[phone] [facility] [address], [id number], tel:[phone] [facility] No Information August-0 - 4 Juan Antonio Ronni. . Referring Provider: King Wayne , [address] [place] [address], [address]. tel:[phone] [facility], [place], [place], [id number], [place] tel:[phone] [place] No Information Jul- 4 Juan Antonio Ronni. . Referring Provider: King Wayne , [address] [place] [address], [place], [address]. tel:[phone] [facility], [place], [place], [id number], [place] tel:[phone] [place] No Information 4 Juan Antonio Ronni. . Referring Provider: King Wayne , [address] [place] [address], [place], [address]. tel:[phone] [facility], [place], [place], [id number], [place] tel:[phone] [place] No Information Jul- 4 Juan Antonio Ronni. . Referring Provider: King Wayne , [address] [place] [address], [place], [address]. tel:[phone] [facility], [place], [place], [id number], [place] tel:[phone] [place] No Information 4 Juan Antonio Ronni. . Referring Provider: King Wayne , [address] [place] [address], [place], [address]. tel:[phone] [facility], [place], [place], [id number], [place] tel:[phone] [place] No Information Jun- 4 Juan Antonio Ronni. . Referring Provider: King Wayne , [address] [place] [address], [address]. tel:[phone] [facility], [place], [place], [id number], [place] tel:[phone] [place] No Information Jun- 4 Juan Antonio Ronni. . Referring Provider: King Wayne , [address] [place] [address], [address]. tel:[phone] [facility] [address], [id number], tel:[phone] [place] No Information Nov-0 3 Juan Antonio Ronni. . Referring Provider: King Wayne , [address] [place] [address], [address]. tel:[phone] [facility] [address], [id number], [place] tel:[phone] [place] No Information Feb-0 3 Juan Antonio Ronni. . Referring Provider: King Wayne , [address] [place] [address], [address]. tel:[phone] [facility] [address], [id number], [place] tel:[phone] [place] No Information 0 3 Juan Antonio Ronni. . Referring Provider: King Wayne , [address] [place] [address], [address]. tel:[phone] [facility] [address], [id number], [place] tel:[phone] [place] No Information 3 Juan Antonio Ronni. . Referring Provider: King Wayne , [address] [place] [address], [address]. tel:[phone] [facility] [address], [id number], [place] tel:[phone] [place] No Information 3 Aissatou Flores. [address] [facility], [address], [place], [address], [place]. tel: [phone] Referring Provider: King Wayne , [address] [place] [address], [address]. tel:[phone] [facility] [address], [id number], [place] tel:[phone] [place] No Information Oct-2 4-202 3 Aissatou Flores. [address] [facility], [address], [place], [place], [facility], [place]. tel: [phone] Referring Provider: King Wayne , [address] [place] [address], [address]. tel:[phone] [facility] [address], [id number], [place] tel:[phone] [place] No Information Oct-1 9-202 3 Juan Antonio Ronni. . Referring Provider: King Wayne , [address] [place] [address], [address]. tel:[phone] [facility] [address], [id number], [place] tel:[phone] [place] No Information Oct-1 2-202 3 Juan Antonio Ronni. . Referring Provider: King Wayne , [address] [place] [address], [address]. tel:[phone] [facility] [address], [id number], [place] tel:[phone] [place] No Information Oct-1 0-202 3 Juan Antonio Ronni. . Referring Provider: King Wayne , [address] [place] [address], [address]. tel:[phone] [facility] [address], [id number], [place] tel:[phone] [place] No Information Oct-0 3-202 3 Juan Antonio Ronni. . Referring Provider: King Wayne , [address] [place] [address], [address]. tel:[phone] [facility] [address], [place], [place], [id number], [place] tel:[phone] [place] No Information 3 Juan Antonio Ronni. . Referring Provider: King Wayne , [address] [place] [address], [place], [address]. tel:[phone] [facility] [address], [place], [place], [id number], [place] tel:[phone] [place] No Information 3 Juan Antonio Ronni. . Referring Provider: King Wayne , [address] [place] [address], [place], [address]. tel:[phone] [facility] [address] [facility], [place], [place], [id number], [place] tel:[phone] [place] No Information 3 Juan Antonio Ronni. . Referring Provider: King Wayne , [address] [place] [address], [place], [address]. tel:[phone] [facility] [address] [facility], [place], [place], [id number], [place] tel:[phone] [place] No Information 3 Juan Antonio Ronni. . Referring Provider: King Wayne , [address] [place] [address], [place], [address]. tel:[phone] [facility] [address] [facility], [place], [id number], [place] tel:[phone] [place] No Information 3 Juan Antonio Ronni. . Referring Provider: King Wayne , [address] [place] [address], [place], [address]. tel:[phone] [facility], [place], [place], [id number], [place] tel:[phone] [place] No Information 3 Juan Antonio Ronni. . Referring Provider: King Wayne , [address] [place] [address], [place], [address]. tel:[phone] [facility] [address], [place], [place], [id number], [place] tel:[phone] [place] No Information 3 Juan Antonio Ronni. . Referring Provider: King Wayne , [address] [place] [address], [place], [address]. tel:[phone] [facility], [address] [address], [place], [place], [id number], [place] tel:[phone] [place] No Information 3 Juan Antonio Ronni. . Referring Provider: King Wayne , [address] [place] [address], [address]. tel:[phone] [facility] [address], [place], [place], [id number], [place] tel:[phone] [place] No Information 3 Juan Antonio Ronni. . Referring Provider: King Wayne , [address] [place] [address], [address]. tel:[phone] [facility] [address], [id number], [place] tel:[phone] [place] No Information Juan J-2 3 Juan Antonio Ronni. . Referring Provider: King Wayne , [address] [place] [address], [address]. tel:[phone] [facility], [id number], [place] tel:[phone] [place] No Information Sep-2 0 3 Juan Antonio Ronni. . Referring Provider: King Wayne , [address] [place] [address], [address]. tel:[phone] [facility] [facility] [address], [place], [id number], [place] tel:[phone] [place] No Information Juan J-1 - 3 Juan Antonio Ronni. . Referring Provider: King Wayne , [address] [place] [address], [place], [address]. tel:[phone] [facility] [address] [facility] [address], [place], [place], [id number], [place] tel:[phone] [place] No Information Juan J-1 3-202 3 Juan Antonio Ronni. . Referring Provider: King Wayne , [address] [place] [address], [address]. tel:[phone] [facility] [address] [facility] [address], [place], [place], [id number], [place] tel:[phone] [place] No Information Juan J-0 7- 3 Juan Antonio Ronni. . Referring Provider: King Wayne , [address] [place] [address], [address]. tel:[phone] [facility] [address], [id number], [place] tel:[phone] [place] No Information Juan J-0 6- 3 Juan Antonio Ronni. . Referring Provider: King Wayne , [address] [place] [address], [address]. tel:[phone] [facility] [address], [place], [place], [id number], [place] tel:[phone] [place] No Information Juan J-0 1-202 3 Juan Antonio Ronni. . Referring Provider: King Wayne , [address] [place] [address], [address]. tel:[phone] [facility] [facility] [address], [place], [id number], [place] tel:[phone] [place] No Information 3 Juan Antonio Ronni. . Referring Provider: King Wayne , [address] [place] [address], [place], [address]. tel:[phone] [facility] [address] [address], [place], [place], [id number], [place] tel:[phone] [place] No Information - 3 Juan Antonio Ronni. . Referring Provider: King Wayne , [address] [place] [address], [place], [address]. tel:[phone] [facility] [address] [facility] [address], [place], [place], [id number], [place] tel:[phone] [place] No Information 3 Juan Antonio Ronni. . Referring Provider: King Wayne , [address] [place] [address], [address]. tel:[phone] [facility] [address], [id number], [place] tel:[phone] [place] No Information 3 Juan Antonio Ronni. . Referring Provider: King Wayne , [address] [place] [address], [address]. tel:[phone] [facility] [address] [place] [address], [id number], [place] tel:[phone] [place] No Information 3 Juan Antonio Ronni. . Referring Provider: King Wayne , [address] [place] [address], [address]. tel:[phone] [facility] [address], [id number], [place] tel:[phone] [place] No Information 3 Juan Antonio Ronni. . Referring Provider: King Wayne , [address] [place] [address], [address]. tel:[phone] [facility], [id number], tel:[phone] [place] No Information 3 Juan Antonio Ronni. . Referring Provider: King Wayne , [address] [place] [address], [address]. tel:[phone] [facility] [address], [id number], tel:[phone] [place] No Information 3 Juan Antonio Ronni. . Referring Provider: King Wayne , [address] [place] [address], [address]. tel:[phone] [facility] [address], [id number], tel:[phone] [place] No Information 3 Juan Antonio Ronni. . Referring Provider: King Wayne , [address] [place] [address], [address]. tel:[phone] [facility] [address], [id number], tel:[phone] [place] No Information 3 Juan Antonio Ronni. . Referring Provider: King Wayne , [address] [place] [address], [address]. tel:[phone] [facility] [address], [id number], tel:[phone] [place] No Information 0 3 Juan Antonio Ronni. . Referring Provider: King Wayne , [address] [place] [address], [address]. tel:[phone] Family History Family Member Type Diagnosis Age At Onset No Information Payers Payer name Insurance type Covered constitution party ID Mainor guerrerobreonna(s) [employer] [id number] Social History Type Description Quantity Date Captured Comments Sex Female Smoking Status No Information Chief Complaint And Reason For Visit No Information Reason For Referral Reason For Referral No Information History Of Present Illness Encounter Date Complaint History Of Prese nt Illness No Information Functional Status Date Functional Assessmen t No Information Instructions Date Instruction Additional Infor mation Prescribed activity/exercise edu cation Related to Overweight Dietary needs education Related to Overweight Prescribed activity/exercise edu cation Related to Overweight Dietary needs education Related to Overweight Assessments Type Assessment Date No Information Patient Care Teams Name Effective Dates (start - stop) Status Members No Information
[2025-03-05 14:59] VITALS: BMI 26.6
--- OUTSIDE RECORDS SUMMARY | 2025-03-06 00:19 | XMS_ITS ---
Author Name Dana Griffith Address [address] [place] [address] Phone [phone] Organization [facility] Care Team Providers Care Housing Inspector Name Role Phone Candis Moffett Unavailable [phone] Heri Wayne Unavailable [phone] HERI GUERRA Unavailable [phone] Reason for Referral Not Available Allergies, adverse reactions, alerts No known allergies History of medication use Medication Class Instructions Start Date End Date Aleve 220 mg Cap 2 capsules orally one time 2025-01-01 No Data Available oxyBUTYnin Chloride ER 10 mg Tab ER 24hr TAKE 1 TABLET BY MOUTH EVERY DAY 2024-05-04 No Data Available Furosemide 40 mg Tab TAKE 1 TABLET BY MO UTH EVERY DAY 2023-12-05 No Data Available Ferrous Gluconate 324 (38 Fe) MG Tab TAKE 1 TABLET BY MOUTH EVERY DAY 2024-01-24 No Data Available Omeprazole 40 mg Cap delayed rel TAKE 1 CAPSULE BY MOUTH ONCE DAILY 2023-08-20 No Data Available Escitalopram Oxalate 10 mg Tab 10 MG ORALLY DAILY 2024-01-15 No Data Available Problem List Problem Status Onset Date Resolved Date Synopsis Osteoarthritis of knees, bilateral Active 2025-01-01 N/A Gets corticoster oid injections in her knees (last in 02/2024). She has had them a couple times. Peripheral edema Active 2025-01-01 N/A Well-con trolled with furosemide daily. Denies history of CHF. Anxiety Active 2025-01-01 N/A Well-controlle d with escitalopram GERD (gastroesophageal reflux disease) Active 2025-01-01 N/A Well-controlled with omeprazole Iron deficiency Active 2025-01-01 N/A Takes iro n supplement 4-5x week. No issues with constipation. Encounters Encounters Type Facility Date of Service Diagnosis/Co mplaint Home visit for evaluation and management of new patient requiring medically appropriate examination and moderate level of medical decision making. If using time, at least 60 minutes total time on enco [facility] [place] 01/01/2025 Bilateral primary osteoarthritis of kneeLocalized edemaAnxiety disorder, unspecifiedGastro-esophageal reflux disease without esophagitisIron deficiencyBody mass index (bmi) 27.0-27.9, adult Home visit for evaluation and management of new patient requiring medically appropriate examination and moderate level of medical decision making. If using time, at least 60 minutes total time on enco [facility] [place] 01/01/2025 Bilateral primary osteoarthritis of knee Home visit for evaluation and management of new patient requiring medically appropriate examination and moderate level of medical decision making. If using time, at least 60 minutes total time on enco [facility] [place] 01/01/2025 Bilateral primary osteoarthritis of knee Home visit for evaluation and management of new patient requiring medically appropriate examination and moderate level of medical decision making. If using time, at least 60 minutes total time on enco [facility] [place] 01/01/2025 Anxiety disorder, un specified Vital Signs Date of Collection Vitals 2025-01-01 09:00:00 Height - 167.64 cmWe ight - 77.11 kgBody Mass Index (BMI) - 27.44 kg/m2BP Diastolic - 60.0 mm[Hg]BP Systolic - 125.0 mm[Hg]Heart Rate - 98.0 /minRespiratory Rate - 16.0 /minBody Temperature - 37.11 CelO2 % BldC Oximetry - 99.0 % Social History Social History Social History Observation Description Effec tive Time Current Smoking Status Never smoker 2025-02-24 1 Sex Female History of Procedures Procedures Service Procedure code Service date Servicing provider Phone# Home visit for evaluation and management of new patient requiring medically appropriate examination and moderate level of medical decision making. If using time, at least 60 minutes [place] [id number] 2025-01-01 No Data Available No Data Availa ble Functional status assessed 1170F 2025-01-01 No Data Available No Data Availa ble Patient screened for fall risk; no falls in the last year or 1 fall with no injury in the last year 1100F 2025-01-01 No Data Available No Data Avail able Advance care planning discussion documented in medical record [id number] 2025-01-01 No Data Available No Data Ericai tai Functional Status Functional Category Effective Dates She uses a rollator 2025-01-01 No recent falls 2025-01-01 Her still drives 2025-01-01 Has a shower seat 2025-01-01 Mental Status Status Date Cognitive: Mini-Cog Score: N/A (01/02/20 25) 2025-01-01 Assessments Date of Service Assessments 2025-01-01 09:00:00 Osteoarthritis of kn ees, bilateralPeripheral edemaAnxietyGERD (gastroesophageal reflux disease)Iron deficiency Plan of Care Date of Service Plans 2025-01-01 09:00:00 Recommend annual [facility] visit.Gets corticosteroid injections in her knees (last in 02/2024). She has had them a couple times. She is planning to follow up later this year. Pain control with Aleve once daily. Uses walker for stability/ambulation. No recent falls.Well-controlled with furosemide daily. Denies history of CHF. Follow up with PCP. Recommend low sodium diet.Well-controlled with escitalopram, Denies depressive symptoms.Well-controlled with omeprazole. No breakthrough symptoms.Takes iron supplement 4-5x week. No issues with constipation.Annual bloodwork to include: CBC, CMP, A1C, TSH and lipid panel Goals Date Goal 2025-01-01 Continue current med ication regimen. 2025-01-01 Follow up with PCP a nd specialists as directed. 2025-01-01 Recommend annual inf luenza vaccine. 2025-01-01 Complete [place] an [place] POA provided and have notarized as discussed. 2025-01-01 Contact PCP for any non-emergent medical concerns to avoid unplanned hospitalization. Health Concerns Date Concern 2025-01-01 [facility] is a service that involves a physician or advanced practice provider conducting comprehensive assessments in your patient s home or virtually to address crucial areas such as chronic conditions, quality gaps, social concerns, fall risk prevention, and various screenings. Please note that your patient will remain attributed to you even though they are participating in this service. If you have any questions, please reach out directly to our team at the phone number above.Your patient, Leslie Chambersy105/24/1939, was seen today for a [facility] Call visit. Patient read rights and responsibilities and consented to treatment. The purpose of this summary is to update you on the patient's current health status and share any relevant findings from the examination. 2025-01-01 Recommendations: Minor cadena current medication regimen. Routine follow up with PCP. 2025-01-01 Patient is a 84 yr o ld female. They are being seen today for a [facility] comprehensive exam. Patient denies any current concerns or symptoms. They deny any recent hospitalizations, illness, injury, or falls. Current diagnoses and medications are as listed below. Patient lives with spouse. They are independent with their care. They use a walker for ambulation. 2025-01-01 She last saw her PCP in November with annual bloodwork. She states that her bloodwork for normal. 2025-01-01 She sees a dentist a nd actuarial intern annually.
--- OUTSIDE RECORDS SUMMARY | 2025-03-06 00:19 | XMS_ITS | Clinical Summary ---
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 Active losartan (COZAAR) 50 mg tablet Take 50 mg by mouth daily 0 06/28/2018 Active atorvastatin (LIPITOR) 20 mg tablet Take 20 mg by mouth daily 0 08/15/2018 Active naproxen (ALEVE) 220 mg tablet Take 220 mg by mouth 2 (two) times a day with meals 2 tablets in morning 1 tablet in evening Active HYDROcodone-puja taminophen (NORCO) 5-325 mg per tabletIndicatio ns:Pain Take 1 tablet by mouth every 6 (six) hours as needed for pain Active gabapentin (NEURONTIN) 100 mg capsule Take 1 capsule (100 mg total) by mouth nightly 60 capsule 2 11/18/2020 Active Active Problems Problem Noted Date Diagnosed Date Spondylosis of thoracic joint 11/18/2020 Kyphosis of thoracolumbar region 11/18/2020 Chronic midline thoracic back pain 11/18/2020 Retained orthopedic hardware 05/17/2018 Overview (05/17/2018): Added automatically from request for surgery [id number] Osteoarthritis of right ankle 05/17/2018 Overview (05/17/2018): Added automatically from request for surgery [id number] Deformity of right foot 12/15/2017 Overview (12/15/2017): Added automatically from request for surgery [id number] Closed fracture of bone of right foot 12/15/2017 Overview (12/15/2017): Added automatically from request for surgery [id number] Ankle arthritis 10/14/2017 Acquired scoliosis 04/01/2017 Pain of foot 01/19/2017 Spondylolisthesis of lumbar region 09/28/2016 Osteoporosis 09/28/2016 Varicose veins of both lower extremities with pa in 08/28/2016 Lymphedema of right lower extremity 08/26/2016 Low back pain 08/17/2016 Immunizations Immunization Administration Dates Next Due Influenza, Quadrivalent, Hig h Dose, Preservative Free, Intrr 01/16/2020 Influenza, Trivalent, High D ose, Split, Preservative Free, Intramuscular 02/26/2014 Influenza, Trivalent, Preser vative Free, Intramuscular 01/24/2017,01/25/2016 Influenza, Unspecified 01/24/2019,12/25/2017,04/2016 Surgical History Surgery Date Site/Laterality Comments [place] HEMORRHOIDECTOMY INTERNAL RUBBER BAND LIGATIONS Hemorrhoidectomy - (Added by TW Conv) HYSTERECTOMY Total Hysterectomy - (Added by TW Conv) [place] CHOLECYSTECTOMY Cholecystectomy - (Added by TW Conv) [place] CORRECTION HAMMERTOE Arthroplasty For Hammertoe - (Added by TW Conv) BACK SURGERY rods and screws throughtout spine 2017 JOINT REPLACEMENT Right ankle Medical History Medical History Date Comments Personal history of other di seases of the circulatory system History of hypertension - (A dded by TW Conv) Hypertension Peptic ulceration GERD (gastroesophageal reflux disease) Low back pain Family History Medical History Relation Name Comments Breast cancer Daughter Family history of malignant neoplasm of breast - (Added by TW Conv) Cancer Daughter Cancer Father Leukemia Father Family history of leukemia - (Added by TW Conv) No Known Problems Mother Breast cancer Sister Family history of malignant neoplasm of breast - (Added by TW Conv) Cancer Sister Anesthesia problems Neg Hx Relation Name Status Comments Daughter Father Mother Sister Social History Tobacco Use Types Packs/Day Years Used Date Smoking Tobacco: Never Smokeless Tobacco: Never Tobacco Cessation:Counseling Given: No Alcohol Use Standard Drinks/Week Comments No 0 (1 standard drink = 0.6 oz pur e alcohol) AUDIT-C Answer Date Recorded Q1: How often do you have a drink containing alc ohol? 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 Gender Identity Not on file Sexual Orientation Not on file Occupation Industry Job Start Date Job End Date retired Not on file Not on file Not on file Last Filed Vital Signs Vital Sign Reading Time Taken Comments Blood Pressure 152/83 01/10/2021 9:23 AM CDT Pulse 85 01/10/2021 9:23 AM CDT Temperature 36.5 C (97.7 F) 01/10/2021 7:29 AM CDT Respiratory Rate 16 01/10/2021 9:23 AM CDT Oxygen Saturation 98% 01/10/2021 9:23 AM CDT Room air Inhaled Oxygen Concentration - - Weight 78.9 kg (174 lb) 01/10/2021 7:29 AM CDT Height 167.6 cm (5' 6) 01/10/2021 7:29 AM CDT Body Mass Index 28.08 01/10/2021 7:29 AM CDT Plan of Treatment Not on file Goals Goal Patient Goal Type Associated Problems Recent Progress Patient-Stated? Author CCM Chronic Pain Care Plan Chronic Care Management On track(2020 7:36 AM CDT) No Soo Jorge, RN Note: Problem: Chronic Pain Goals: 1. Minimize further functional decline 2. Maximize quality of life 3. Control pain Strategies: - Activity/exercise program recommendation - Conservative stepwise pain medicine strategy with multi-disciplinary approach - Recommend healthy lifestyle strategies and compensatory methods as needed Medical Devices Implanted Type Area Capsule Maker Device Identifier Shelf Expiration Date Model / Serial / Lot [employer] [id number] Palacos Radiopaque Cement 40 Gm Bone Sterile - S0 - [id number] Implanted:Qty: 1 on 01/04/2018 by Shree Bosch MD at [facility] Bone Cement Right: Ankle [employer] 04/25/2022 [id number] / 0 / [employer] [id number] Steinmann 3/32in 9in 2 Trocar Pin Fixation Nonsterile - S0 - [id number] Implanted:Qty: 2 on 01/04/2018 by Shree Bosch MD at [facility] Pin Right: Foot [employer] 01/04/2018 [id number] / 0 / Orthohelix [id number]-002-0a Maxlock Extreme Slotless [place] Alpha Plate Bone Nonsterile - S0 - [id number] Implanted:Qty: 1 on 01/04/2018 by Shree Bosch MD at [facility] Plate Right: Ankle Orthohelix 01/04/2018 MXL-002-0A / 0 / Orthohelix [id number] Maxtorque 5.5mm 45mm Cannulated Self Drill Foot Ankle Short - S0 - [id number] Implanted:Qty: 1 on 01/04/2018 by Shree Bosch MD at [facility] Screw Right: Ankle Orthohelix 01/04/2018 MSD-010-55- [id number] / 0 / Orthohelix [id number] 3.5mm 22mm Lock Fix Angle Foot Ankle Screw Bone Nonsterile - S0 - [id number] Implanted:Qty: 1 on 01/04/2018 by Shree Bosch MD at [facility] Screw Right: Ankle Orthohelix 01/04/2018 RAILROAD COOK-021-35- 22 / 0 / Orthohelix [id number] 3.5mm 26mm Lock Fix Angle Foot Ankle Screw Bone Nonsterile - S0 - [id number] Implanted:Qty: 1 on 01/04/2018 by Shree Bosch MD at [facility] Screw Right: Ankle Orthohelix 01/04/2018 RAILROAD COOK-021-35- 26 / 0 / Orthohelix [id number] Maxlock Extreme 3.5mm 30mm Nonlock Foot Ankle Screw Bone - S0 - [id number] Implanted:Qty: 2 on 01/04/2018 by Shree Bosch MD at [facility] Screw Right: Ankle Orthohelix 01/04/2018 RAILROAD COOK-011-353 0 / 0 / Orthohelix [id number] Maxtorque 7mm 50mm Cannulated Self Drill Foot Ankle Short Thread - [id number] Implanted:Qty: 1 on 01/04/2018 by Shree Bosch MD at [facility] Right: Foot Orthohelix MSD-010-70- 050S / / Orthohelix [id number] Maxtorque 5.5mm 50mm Cannulated Self Drill Foot Ankle Long Thread - [id number] Implanted:Qty: 1 on 01/04/2018 by Shree Bosch MD at [facility] Right: Foot Orthohelix MSD-010-55- 050L / / [employer] [id number] Augment Graft 3cc Bone - [id number] Implanted:Qty: 1 on 01/04/2018 by Shree Bosch MD at [facility] Right: Ankle [employer] 07/24/2018 [id number] / / [id number] [employer] [id number] Mini Ignite Power Mix Injectable Graft 4ml Synthetic Tissue - [id number] - [id number] Implanted:Qty: 1 on 01/04/2018 by Shree Bosch MD at [facility] Right: Ankle [employer] 03/03/2022 [id number]-0400 / [id number] / [id number] [employer] [id number] Inbone Knee Right 3 Long Tray Tibial - [id number] Implanted:Qty: 1 on 07/26/2018 by Shree Bosch MD at [facility] Right: Ankle [employer] [id number] 03/07/[id number] / / [id number] [employer] [id number] Inbone 14mm Ankle Stem Talar - [id number] Implanted:Qty: 1 on 07/26/2018 by Shree Bosch MD at [facility] Right: Ankle [employer] 08/23/[id number] / / [id number] [employer] [id number] Inbone Sulcus Ankle 2 Dome Component Talar - [id number] Implanted:Qty: 1 on 07/26/2018 by Shree Bosch MD at [facility] Right: Ankle [employer] [id number] 10/09/2025 [id number] / / [id number] [employer] [id number] Palacos R High Viscosity Cement 40gm Bone Green - [id number] Implanted:Qty: 2 on 07/26/2018 by Shree Bosch MD at [facility] Right: Ankle [employer] 07/24/2021 [id number] / / [id number] Ar[employer] [id number] Tenodesis 4.75mm 15mm Acl Screw Interference Biocomposite Sterile - [id number] Implanted:Qty: 1 on 07/26/2018 by Shree Bosch MD at [facility] Right: Ankle [employer] 11/24/2019 [id number] / / [id number] [employer] [id number] Inbone 10mm Sulcus Ankle 2+ Insert Tibial Poly - [id number] Implanted:Qty: 1 on 07/26/2018 by Shree Bosch MD at [facility] Right: Ankle [employer] [id number] 01/15/2026036888521G / / [id number] [employer] Inbone 16mm Base Ankle Stem Tibial Plasma - [id number] Implanted:Qty: 1 on 07/26/2018 by Shree Bosch MD at [facility] Right: Ankle [employer] [id number] 06/26/2026344896-751 / / [id number] [employer] Inbone 14mm Mid Ankle Stem Tibial Plasma - [id number] Implanted:Qty: 1 on 07/26/2018 by Shree Bosch MD at [facility] Right: Ankle [employer] 05/17/2027810226-080 / / [id number] [employer] Inbone 14mm Mid Ankle Stem Tibial Plasma - [id number] Implanted:Qty: 1 on 07/26/2018 by Shree Bosch MD at [facility] Right: Ankle [employer] 05/17/2026930054-064 / / [id number] [employer] Inbone 14mm Top Ankle Stem Tibial Plasma - [id number] Implanted:Qty: 1 on 07/26/2018 by Shree Bosch MD at [facility] Right: Ankle [employer] 05/20/[id number] / / [id number] Explanted Type Area Capsule Maker Device Identifier Shelf Expiration Date Model / Serial / Lot [employer] [id number] K-Wire 1.4mm 228mm Wire Fixation - [id number] Explanted:Qty: 2 on 07/26/2018 by Shree Bosch MD at [facility] Right: Ankle [employer] [id number] / / Insurance [facility] Member Subscriber Plan / Payer (Ef fective 2017-Present) Name:Leslie Flores Relation to Subscriber:Self Name:LESLIE FLORES Payer ID:[id number] ([facility]) Type:MEDICARE RISK OTHER Address: [address] [place] [id number] [facility] Advance Directives For more information, please contact: [phone] * Full Code (Latest Code Status on File) Date Activated Date Inactivated Comments 07/26/2018 2:04 PM 07/27/2018 3:36 PM * Full Code Date Activated Date Inactivated Comments 01/04/2018 2:33 PM 01/05/2018 3:16 PM Care Teams Station Worker Relationship Specialty Start Date End Date King Wayne MD PCP - General 07/30/16
--- OUTSIDE RECORDS SUMMARY | 2025-03-06 00:19 | XMS_ITS | Encounter Summary ---
Author Organization [facility] Address [address] [place] [address] Phone Care Team Providers Care Junior [employer] Teacher Name Role Phone King Wayne MD Primary Care Prov ider Encounter Details Date Type Department Care Team (Latest Contact Info) Description 02/17/2017 Orders Only [facility] CONVERSION Scanning, Provider Social History Tobacco Use Types Packs/Day Years Used Date Smoking Tobacco: Never Assessed Comments Unknown Sex and Gender Information Value Date Recorded Sex Assigned at Not on file 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 Gender Identity Not on file Sexual Orientation Not on file documented as of this encounter Functional Status documented as of this encounter Plan of Treatment Not on file documented as of this encounter Procedures Procedure Name Priority Date/Time Associated Diagnosis Comments VASCULAR LABORATORY REPORT 02/17/2017 8:18 PM CDT documented in this encounter Results * VASCULAR LABORATORY REPORT (02/17/2017 8:18 PM CDT) Anatomical Region Laterality Modality Ultrasound us Provider Scanning CV VASCULAR PROCEDURES Final R esult documented in this encounter Visit Diagnoses Not on filedocumented in this encounter Care Teams [employer] Teacher Relationship Specialty Start Date End Date King Wayne MD PCP - General 07/30/16 documented as of this encounter
--- OUTSIDE RECORDS SUMMARY | 2025-03-06 00:19 | XMS_ITS ---
Author Organization Unknown ENCOUNTERS Encounter Performer Location Date Diagnosis Diagnosis Status Outpatient [facility] [id number] [place] [address] [id number] [facility] [address] [place] [address] [id number] PAT Pre Admit [facility] [address] [place] [address] [id number] *Note: Encounters from your own facility or health system may be excluded. Allergies, Adverse Reactions, Alerts Allergen Type Severity Identification Date celecoxib drug allergy 4 20230715 donepezil drug allergy 3 [id number] lisinopril drug allergy 3 [id number] Medications Name Date Quantity Days Supplied GPI Number
[2025-03-06 13:23] VITALS: BP 144/79; PULSE 90; RESP 18; TEMP 36.3; O2SAT 98; BMI 25.4
[2025-03-06] MEDS: LACTATED RINGERS 1,000 ML 150 ML IV CONT (13:32)
--- NOTE | 2025-03-06 13:53 | P.PNAN_ITS ---
Anes - Initial Pre Proc Eval Procedure: Operation Date: 03/06/25 14:30 Proposed Procedures p Esophagogastroduodenoscopy EGD - Cosme Wolf MD Date/Time: 03/06/25 13:53 Surgeon: Cosme Wolf MD Pre Op Diagnosis: Dysphagia, unspecified Patient Data Age: 84 Gender: F Height: 1.68 m Weight: 71.5 kg Last Vital Signs Temp 36.3 C L 03/06/25 13:23 Pulse 90 03/06/25 13:23 Resp 18 03/06/25 13:23 BP 144/79 H 03/06/25 13:23 Pulse Ox 98 03/06/25 13:23 O2 Del Method Room Air 03/06/25 13:23 Allergies Allergy/AdvReac Type Severity Reaction Status Date / Time celecoxib Allergy Severe GI BLEED Verified 03/06/25 13:22 lisinopril AdvReac Intermediate cough Verified 03/06/25 13:22 [place] Nut Allergy Unknown mouth Uncoded 03/05/25 13:13 swells memantine AdvReac Intermediate Dizziness Uncoded 03/05/25 13:13 Home Medications ?Medication ?Instructions ?Recorded ?Confirmed ?Type naproxen sodium 220 mg tablet 220 mg PO BID PRN Pain 0 11/20/20 03/06/25 History (Aleve) atorvastatin 20 mg tablet 20 mg PO DAILY 07/25/2302/24 History losartan 50 mg tablet 50 mg PO DAILY 07/25/2302/24 History triamcinolone acetonide 0.1 % 1 applic topical BID #15 grams 11/22/23 03/05/25 Rx topical cream ferrous gluconate 324 mg (37.5 mg See Rx Instructions .Route 09/24/24 03/06/25 Rx iron) tablet .COMPLEX #30 tabs omeprazole 40 mg capsule,delayed 40 mg PO DAILY #90 ca ps 09/30/24 03/06/25 Rx release donepezil 10 mg tablet 10 mg PO QHS #90 tabs 03/06/25 Rx escitalopram oxalate 10 mg tablet 10 mg PO DAILY #90 t abs 10/24/24 03/06/25 Rx (Lexapro) furosemide 40 mg tablet 40 mg PO DAILY #90 tabs 08/1803/06/25 Rx oxybutynin chloride 10 mg See Rx Instructions .Route 0 01/02/25 03/06/25 Rx tablet,extended release 24 hr .COMPLEX #30 tabs Patient hx anesthesia problems: none Family hx anesthesia problems: none Results Review: All pre-operative results and documents have been reviewed as part of the pre- operative evaluation. [facility] Past Medical History Medical History Dementia of Alzheimer's type with behavioral disturbance Gastro-esophageal reflux disease without esophagitis Mixed hyperlipidemia Surgical History Surgical History History of hammer toe correction History of ventral hernia repair History of ankle surgery 2018 right History of hemorrhoidectomy History of arthroscopy of left knee History of lumbar surgery 2018 History of cholecystectomy 2010 History of hysterectomy with bilateral oophorectomy Family History Family History Father Leukemia Mother Hypertension Brain aneurysm Daughter Breast cancer Other Family history of arthritis Social History Social History Social History: Surrogate medical decision maker: Genealisia Flores, spouse. Code status: Full code. Smoking status: Never smoker Second hand tobacco smoke exposure: No Alcohol intake: never Substance use: never Substance use type: does not use Do You Feel Safe in your Home?: Yes Lack of Transportation: No Lack of Food: Never True Current Housing: I Have Housing Concerned About Future Housing: No Difficulty Paying Gas/Electric Bills: No Difficulty Paying for Meds: No Currently Unemployed: No Education: High School Diploma/GED Difficulty w/ Childcare or Family Care: No Living arrangements: with family Occupation/Education: retired Gender identity (if verbalized by the patient): Female Sexual Orientation (if Verbalized by the Patient): Straight or Heterosexual Spiritual care concerns: No Agree to blood products: Yes Anes - Eval Final PreProcedure Day of Procedure 03/06/25 13:53 Patient weight: overweight Heart: regular rate and rhythm Lungs: clear to auscultation Airway: Mallampati scale class III Neurological: alert and oriented Last oral intake: >/= 8 hours ASA classification: III Emergent: no Anesthetic plan: proceed Anesthesia type and monitoring: general GIVS and standard monitoring Results Review: All pre-operative results and documents have been reviewed as part of the pre- operative evaluation. Informed Consent: The patient's anesthetic plan and its attendant risks and benefits were discus sed with the patient/family/POA. Questions were solicited and answers provided to the satisfaction of the patient/family/POA.
--- NOTE | 2025-03-06 14:04 | WPDHPUPDATE1 ---
History and Physical Update Update Date/Time: 03/06/25 14:04 History and Physical has been reviewed, including an updated exam of the patient. There are NO changes in the patient's condition. Risks, benefits, and alternatives have been discussed and questions answered. Patient agrees to proceed with procedure.
[2025-03-06 14:24] VITALS: BP 86/42; PULSE 77; RESP 23; O2SAT 97
[2025-03-06 14:34] VITALS: BP 112/50; PULSE 77; RESP 21; O2SAT 97
[2025-03-06 14:48] VITALS: BP 118/56; PULSE 79; RESP 19; O2SAT 99
== END 2025-03-06 14:49 | disposition home or self-care (01) ==
PROVIDERS: PCP Nurse Practitioner Family; Referring Provider Nurse Practitioner Family; Visit Provider Internal Medicine Gastroenterology
PROC: 0DJ08ZZ Inspection of Upper Intestinal Tract, Via Natural or Artificial Opening Endoscopic (ICD-10-PCS; CPT 43249; principal; 2025-03-06 14:30)
DX: K21.9 Gastro-esophageal reflux disease without esophagitis (principal); K22.2 Esophageal obstruction; K44.9 Diaphragmatic hernia without obstruction or gangrene; E78.2 Mixed hyperlipidemia; G30.8 Other Alzheimer's disease; F02.818 Dementia in other diseases classified elsewhere, unspecified severity, with other behavioral disturbance; Z79.1 Long term (current) use of non-steroidal anti-inflammatories (NSAID); Z98.890 Other specified postprocedural states; Z90.49 Acquired absence of other specified parts of digestive tract; Z98.1 Arthrodesis status; Z80.6 Family history of leukemia; Z80.3 Family history of malignant neoplasm of breast
CPT/HCPCS: 43249; C1726; J2003; J2704; J7120